=== PATIENT | male | born 1975 | race Caucasian/White ===

== ENCOUNTER 2017-11-24 12:42 | Outpatient (CLI) ==
[2016-01-16 22:32] VITALS: BMI 26.4
--- NOTE | 2017-11-28 13:47 | HOLTER ---
PATIENT INFORMATION AND COMMENTS Attending Physician: DR. PAULA CLARK Indications: PALPITATIONS, HISTORY OF ABLATION, HISTORY OF SVT __ Patient Medications: VYVANSE, CARDIZEM, PROSCAR __ Pre-procedure Summary: Protocol: Standard Heart Rate Started: 11/24/17 1311 Minimum: 65 BPM Weight: 198 LBS Ended: 11/25/17 1247 Maximum: 119 BPM Height: 72" Duration: 24 HOURS 36 MIN Average: 76 BPM _ INTERPRETATIONS/OBSERVATIONS: 1. BASIC RHYTHM: SINUS, RATE 65 BPM TO 110 BPM, AVERAGE 75 BPM 2. INFREQUENT PAC'S AND PVC'S 3. PVC'S, FEW COUPLETS, NO SALVOS 4. THREE BEAT PAT'S--5 TO 6 / [address]-T WAVE CHANGES FROM BASELINE 6. NO CORRELATION WITH ACTIVITY LOG MTDD
== END 2017-11-24 12:43 | disposition home or self-care (01) ==
LOC: CAR 12:42
PROVIDERS: ATTEND Internal Medicine
DX: R00.2 Palpitations (principal)
CPT/HCPCS: 93227

== ENCOUNTER 2018-05-22 08:52 | Outpatient (CLI) ==
[2016-01-16 22:32] VITALS: BMI 26.4
--- NOTE | 2018-05-22 10:05 | DI ---
Exam: Two views of the chest with four images. Comparison: 01/16/2016. Reason for exam: Cough for a breath. FINDINGS: No pneumothorax, pleural effusion, or focal consolidation. The cardiac silhouette is not enlarged. The imaged osseous structures appear grossly unremarkable without acute fracture. Impression: No acute cardiopulmonary process.
== END 2018-05-22 08:53 | disposition home or self-care (01) ==
LOC: CAR 08:52
PROVIDERS: ATTEND Internal Medicine
DX: R06.02 Shortness of breath (principal); R05 Cough

== ENCOUNTER 2018-06-25 21:14 | Emergency (ER) ==
[2018-06-25 21:23] VITALS: BP 146/81; TEMP 99.7; BMI 27.1
--- NOTE | 2018-06-25 23:00 | CT ---
EXAM: CT chest without intravenous contrast 06/25/2018. Sagittal and coronal reformatted images obt ained HISTORY: Fever COMPARISON: 05/22/2018 FINDINGS: The heart size appears within normal limits. There is no pericardial effusion. Minimal at electasis. There is no pulmonary consolidation, effusion or pneumothorax. Limited views of the upper abdomen show no acute abnormality. Mild chronic degenerative endplate changes. There is no acute osseous abnormality. IMPRESSION: Minimal atelectasis. No acute superimposed cardiopulmonary process.
--- NOTE | 2018-06-25 23:05 | CT ---
EXAM: CT abdomen pelvis without and with intravenous contrast 06/25/2018. Sagittal and coronal refo rmatted images obtained HISTORY: Fever. Recent umbilical hernia. Question abscess COMPARISON: None. FINDINGS: The liver and gallbladder show no acute abnormality. The adrenal glands and kidneys show no acute abnormality. The spleen and pancreas show no acute process. There is no bowel obstruction. Normal appendix. Unremarkable urinary bladder. No free air or free fluid within the abdomen or pelvis A fluid collection is present within the subcutaneous fat at the level of the umbilicus. This extend s from the level of the skin surface to the level of the abdominal wall musculature. On axial series image 88 this measures 3.1 x 2.9 cm diameter. This could represent postoperative seroma. Infected fluid fluid collection/developing abscess is not excluded. Aspiration could be considered. IMPRESSION: Superficial subcutaneous fluid collection at the level of the umbilicus. Reference imag es and measurements above. This could be sterile or infected. Aspiration be could be considered.
[2018-06-25] MEDS ORDERED: DOXY-100 100 MG in SODIUM CHLORIDE 100 ML IV STA (23:24)
--- NOTE | 2018-06-25 23:27 | ED.PDOC ---
General ED Provider: Dr. KANWAL TAVARES-ER Chief Complaint: Fever Stated Complaint: josh had a fever for 2-3 days--i did get bit by a tick 2 weeks ago-umbilical hernia repair 2 weeks ago--denies anyh abdominal pain, drainage or redness at surgical site Time Seen by Physician: 21:20 Mode of Arrival: Walk-In Information Source: Patient, Family Exam Limitations: No limitations Primary Care Provider: PAULA GODINEZ Nursing and Triage Documentation Reviewed and Agree: Yes Does patient meet sepsis criteria?: No System Inflammatory Response Syndrome: Not Applicable Sepsis Protocol: For patient's 13 years and over: Temp is 96.8 and below OR 101 and greater Pulse >90 BPM Resp >20/minute Acutely Altered Mental Status Are patient's symptoms suggestive of a new infection, such as: -Pneumonia -Skin, Soft Tissue -Endocarditis -UTI -Bone, Joint Infection -Implantable Device -Acute Abdominal Infection -Wound Infection -Meningitis -Blood Stream Catheter Infection -Unknown Miscellaneous Complaint Exam - Febrile Illness/Adult Complaint/Exam Onset/Duration: 2-3 days Symptoms Are: Still present Timing: Intermittent Initial Severity: Mild Current Severity: Moderate Aggravating: Reports: None Alleviating: Reports: None Associated Signs and Symptoms: Reports: Headache, Chills, Arthralgia, Stiff neck , Myalgia. Denies: Fluid intake, Short of air, Cough, Sore throat, Nausea, Vomiting, Diaphoresis, Dysuria, Rash, Altered mental status Related History: Reports: Recent tick bite, Recent tick exposure Pseudomonas Risk Factors: Reports: None Serious Bacterial Infection Risk Factors: Reports: None Current Antibiotic Use: No Specific Findings: Absent: Meningeal signs, Diaphoresis, Joint swelling, Erythema, Cellulitis, Lymphadenopathy, CVA tenderness Differential Diagnoses: Abdominal Abscess, Bacteremia, Ari [place]tn. Spotted Fever , Viremia, Other Review of Systems - Review Of Systems Constitutional: Reports: Chills, Fever Eyes: Reports: No symptoms Ears, Nose, Mouth, Throat: Reports: No symptoms Respiratory: Reports: No symptoms Cardiac: Reports: No symptoms GI: Reports: No symptoms : Reports: No symptoms Musculoskeletal: Reports: No symptoms Skin: Reports: No symptoms Neurological: Reports: No symptoms Endocrine: Reports: No symptoms Hematologic/Lymphatic: Reports: No symptoms All Other Systems: Reviewed and Negative Past Medical History - Past Medical History Previously Healthy: No Endocrine: Reports: None Cardiovascular: Reports: Hypertension, Other (H/O SVT ) Respiratory: Reports: None Hematological: Reports: None Gastrointestinal: Reports: None Genitourinary: Reports: None Neuro/Psych: Reports: None Musculoskeletal: Reports: None Cancer: Reports: None - Surgical History General Surgical History: Reports: None - Family History Family History: Reports: None - Social History Smoking Status: Former smoker Hx Substance Use: No Alcohol Screening: Occasionally Lives: With family - Immunizations Tetanus Shot up to Date: Yes Physical Exam - Physical Exam Appearance: Well-appearing, No pain distress, Well-nourished Eyes: AKASH, EOMI, Conjunctiva clear ENT: Ears normal Neck: Supple Respiratory: Airway patent, Breath sounds clear, Breath sounds equal, Respirations nonlabored Cardiovascular: RRR, Pulses normal, No rub, No murmur GI/: Soft, Nontender, No masses (surgical site looks good--no erythema or induration or drainage), Bowel sounds normal, No Organomegaly Musculoskeletal: Normal strength, ROM intact, No edema, No calf tenderness Skin: Warm, Dry, Normal color Neurological: Sensation intact Psychiatric: Affect appropriate, Mood appropriate Interpretation - Radiology Interpretation Radiology Interpretation By: Radiologist Radiology Results: Positive Exam Interpreted: CT Scan Physician Notification - Case Discussed Physician Notified: dr godinez Time of Notification: 23:27 Critical Care Note - Critical Care Note Total Time (mins): 0 Course - Course Hematology/Chemistry: 06/25/18 21:35 06/25/18 21:35 Orders, Labs, Meds: Lab Review 06/25/18 06/25/18 06/25/18 21:25 21:35 21:35 WBC 5.86 RBC 5.03 Hgb 15.1 Hct 44.1 MCV 87.7 MCH 30.0 MCHC 34.2 RDW Coeff of Feliz 12.5 Plt Count 221 Immature Gran % (Auto) 0.3 Neut % (Auto) 72.6 Lymph % (Auto) 12.8 [place] % (Auto) 12.5 H Eos % (Auto) 0.9 Baso % (Auto) 0.9 Immature Gran # (Auto) 0.0 Neut # (Auto) 4.3 Lymph # (Auto) 0.8 [place] # (Auto) 0.7 Eos # (Auto) 0.1 Baso # (Auto) 0.1 ESR 5 Sodium 135 L Potassium 3.8 Chloride 104 Carbon Dioxide 21 Anion Gap 13.8 BUN 19 H Creatinine 0.93 Estimated GFR (MDRD) 88.00 BUN/Creatinine Ratio 20.43 Glucose 112 H Lactic Acid Calcium 9.3 Total Bilirubin 0.4 AST 64 H ALT 72 Alkaline Phosphatase 68 Total Protein 7.3 Albumin 3.7 Globulin 3.6 Albumin/Globulin Ratio 1.03 Procalcitonin Urine Color Yellow Urine Clarity Clear Urine pH 5.5 Ur Specific [place] 1.020 Urine Protein Negative Urine Glucose (UA) Negative Urine Ketones Trace Urine Blood Negative Urine Nitrite Negative Urine Bilirubin Negative Urine Urobilinogen 0.2 Ur Leukocyte Esterase Negative 06/25/18 06/25/18 21:35 21:35 WBC RBC Hgb Hct MCV MCH MCHC RDW Coeff of Feliz Plt Count Immature Gran % (Auto) Neut % (Auto) Lymph % (Auto) [place] % (Auto) Eos % (Auto) Baso % (Auto) Immature Gran # (Auto) Neut # (Auto) Lymph # (Auto) [place] # (Auto) Eos # (Auto) Baso # (Auto) ESR Sodium Potassium Chloride Carbon Dioxide Anion Gap BUN Creatinine Estimated GFR (MDRD) BUN/Creatinine Ratio Glucose Lactic Acid 6.1 Calcium Total Bilirubin AST ALT Alkaline Phosphatase Total Protein Albumin Globulin Albumin/Globulin Ratio Procalcitonin 0.26 Urine Color Urine Clarity Urine pH Ur Specific [place] Urine Protein Urine Glucose (UA) Urine Ketones Urine Blood Urine Nitrite Urine Bilirubin Urine Urobilinogen Ur Leukocyte Esterase Orders Category Date Time Status NPO REMINDER: IMAGING ONCE CARE 06/25/18 21:34 Active IV [ED IV/MEDIPORT/POWERPORT] .ONCE EMERGENCY 06/25/18 21:33 Active BLOOD CULTURE (ED ONLY) Stat LAB 06/25/18 21:35 Received CBC W/ AUTO DIFF Stat LAB 06/25/18 21:35 Completed COMPREHENSIVE METABOLIC PANEL Stat LAB 06/25/18 21:35 Completed EHRLICHIA DNA, PCR Stat LAB 06/25/18 21:35 Received ESR Stat LAB 06/25/18 21:35 Completed LACTIC ACID Stat LAB 06/25/18 21:35 Completed MOLECULAR GROUP A STREP Stat LAB 06/25/18 21:25 Completed PROCALCITONIN Stat LAB 06/25/18 21:35 Completed ARI MTN SPOTTED FEVER,IgG Stat LAB 06/25/18 21:35 Received ARI MTN SPOTTED FEVER,IgM Stat LAB 06/25/18 21:35 Received URINALYSIS C & S IF INDICATED Stat LAB 06/25/18 21:25 Completed 0.9 % Sodium Chloride [Saline Flush] MEDS 06/25/18 21:33 Ordered 1 syr IVF PRN PRN Doxycycline Hyclate Inj [Doxy-100] 100 mg MEDS 06/25/18 23:24 Active 0.9 % Sodium Chloride [Sodium Chloride] [address] ABDOMEN/PELVIS W/WO CONTRAS Stat RADS 06/25/18 21:[address] CHEST W/O CONTRAST Stat RADS 06/25/18 21:33 Completed Medications Generic Name Dose Route Start Last Admin Trade Name Freq PRN Reason Stop Dose Admin Doxycycline Hyclate 100 mg/ 100 mls @ 50 mls/hr 06/25/18 23:24 Sodium Chloride IV 06/26/18 01:23 ONCE STA Sodium Chloride 1 syr 06/25/18 21:33 Saline Flush IVF PRN PRN To flush IV Vital Signs: Temp Pulse Resp BP Pulse Ox 06/25/18 21:18 99.7 F H 90 18 146/81 H 95 Departure - Departure Time of Disposition: 23:28 Disposition: HOME SELF-CARE Discharge Problem: Fever Instructions: Tick Bite (ED), Fever in Adults (ED) Condition: Good Pt referred to PMD for follow-up: Yes IPMP verified?: No Additional Instructions: doxycycline 100mg bid x 7 days--continue temp control and stay hydrated--f/u olman godinez in 1-2 days to follow up on tick bite labs Allergies/Adverse Reactions: Allergies No Known Allergies Allergy (Verified 06/25/18 21:26) Home Medications: Ambulatory Orders Lisdexamfetamine Dimesylate [Vyvanse] 50 mg PO DAILY 06/20/15 Carisoprodol [Soma] 350 mg PO DAILY PRN 03/22/18 Diltiazem HCl [Cardizem] 60 mg PO BID 03/22/18 Finasteride [Proscar] 5 mg PO DAILY 03/22/18 Tumeric 1,000 mg PO BID 03/22/18 Disposition Discussed With: Patient, Family
== END 2018-06-26 01:36 | disposition home or self-care (01) ==
LOC: ED 21:14
DX: R50.9 Fever, unspecified (principal); R51 Headache; M79.1 Myalgia; T14.8XXA Other injury of unspecified body region, initial encounter; W57.XXXA Bitten or stung by nonvenomous insect and other nonvenomous arthropods, initial encounter; Z98.890 Other specified postprocedural states; M43.6 Torticollis; M25.50 Pain in unspecified joint; I10 Essential (primary) hypertension; Z79.899 Other long term (current) drug therapy
CPT/HCPCS: 36415; 80053; 81001; 83605; 84145; 85025; 85651; 86757; 87040; 87651; 87798; 96365; 96366; 99283

== ENCOUNTER 2018-09-23 12:59 | Emergency (ER) | payer OTHER ==
[2018-09-23 12:59] VITALS: BMI 27.1
[2018-09-23] MEDS ORDERED: ADENOCARD IVP ONE (13:05)
[2018-09-23 13:17] VITALS: TEMP 98.1
[2018-09-23] MEDS ORDERED: ADENOCARD IVP STA (13:18)
[2018-09-23] MEDS ORDERED: ATIVAN IVP STA (13:19)
[2018-09-23] MEDS ORDERED: SODIUM CHLORIDE 1,000 ML IV STA (13:20)
--- NOTE | 2018-09-23 13:32 | ED.PDOC ---
General ED Provider: Dr. TOMÁS UMANA Chief Complaint: Palpitations Stated Complaint: Patient is a 42 year old male who has a history of SVT with prior ablation in 2015 who comes to the ER with severe palpiations and feeling of impending doom. Heart rate was >150. Denies any chest pain. Time Seen by Physician: 13:20 Mode of Arrival: Walk-In Information Source: Patient Primary Care Provider: PAULA CLARK Nursing and Triage Documentation Reviewed and Agree: Yes Does patient meet sepsis criteria?: No System Inflammatory Response Syndrome: Not Applicable Sepsis Protocol: For patient's 13 years and over: Temp is 96.8 and below OR 101 and greater Pulse >90 BPM Resp >20/minute Acutely Altered Mental Status Are patient's symptoms suggestive of a new infection, such as: -Pneumonia -Skin, Soft Tissue -Endocarditis -UTI -Bone, Joint Infection -Implantable Device -Acute Abdominal Infection -Wound Infection -Meningitis -Blood Stream Catheter Infection -Unknown Cardiovascular Complaint Exam - Palpitations Complaint/Exam Onset/Duration: 40 mins ago Symptoms Are: Still present Timing: Constant Initial Severity: Severe Current Severity: Severe Character: Reports: Fast Aggravating: Reports: Caffeine Alleviating: Reports: None Associated Signs and Symptoms: Reports: Shortness of breath, Diaphoresis. Denies: Lightheadedness, Dizziness, Syncope, Chest pain, Nausea, Vomiting Related Surgical History: Reports: None (except ablation ) Pulmonary Embolism Risk Factors: Reports: None Atrial Fibrillation Risk Factors: Reports: None Differential Diagnoses: Paroxysmal SVT Quality Indicators for AMI: EKG in 10min. Quality Indicators for Cardiac Chest Pain: EKG in 10min. Quality Indicator For Non-Traumatic Chest Pain/Syncope: EKG Performed Review of Systems - Review Of Systems Constitutional: Reports: No symptoms Eyes: Reports: No symptoms Ears, Nose, Mouth, Throat: Reports: No symptoms Respiratory: Reports: Short of air Cardiac: Reports: Palpitations GI: Reports: No symptoms : Reports: No symptoms Musculoskeletal: Reports: No symptoms Skin: Reports: No symptoms Neurological: Reports: Anxiety Endocrine: Reports: No symptoms Hematologic/Lymphatic: Reports: No symptoms All Other Systems: Reviewed and Negative Past Medical History - Past Medical History Previously Healthy: No Endocrine: Reports: None Cardiovascular: Reports: Hypertension, Other (H/O SVT ) Respiratory: Reports: None Hematological: Reports: None Gastrointestinal: Reports: None Genitourinary: Reports: None Neuro/Psych: Reports: None Musculoskeletal: Reports: None Cancer: Reports: None - Surgical History General Surgical History: Reports: None - Family History Family History: Reports: None - Social History Smoking Status: Former smoker Hx Substance Use: No Alcohol Screening: Occasionally Physical Exam - Physical Exam Appearance: Ill-appearing Ill-appearing: Moderate Pain Distress: None Eyes: AKASH, EOMI, Conjunctiva clear Neck: Supple Respiratory: Airway patent, Breath sounds clear, Breath sounds equal, Respirations nonlabored Cardiovascular: Tachycardia GI/: Soft, Nontender, No masses, Bowel sounds normal, No Organomegaly Musculoskeletal: Normal strength, ROM intact, No edema, No calf tenderness Skin: Warm, Dry, Normal color Neurological: Sensation intact, Motor intact, Reflexes intact, Cranial nerves intact, Alert, Oriented Psychiatric: Anxious Re-Evaluation - Re-Evaluation Time of Re-Evaluation: 13:40 Status: Improved Vital Signs Stable: Yes (103 HR ) Critical Care Note - Critical Care Note Total Time (mins): 40 Course - Course Hematology/Chemistry: 09/23/18 13:25 09/23/18 13:25 Orders, Labs, Meds: Lab Review 09/23/18 09/23/18 13:25 13:25 WBC 8.21 RBC 4.69 L Hgb 14.4 Hct 41.4 L MCV 88.3 MCH 30.7 MCHC 34.8 RDW Coeff of Feliz 12.5 Plt Count 288 Immature Gran % (Auto) 0.4 Neut % (Auto) 65.7 Lymph % (Auto) 25.7 [place] % (Auto) 6.6 Eos % (Auto) 1.1 Baso % (Auto) 0.5 Immature Gran # (Auto) 0.0 Neut # (Auto) 5.4 Lymph # (Auto) 2.1 [place] # (Auto) 0.5 Eos # (Auto) 0.1 Baso # (Auto) 0.0 Sodium 136.5 L Potassium 3.59 Chloride 103.3 Carbon Dioxide 24.5 Anion Gap 12.29 BUN 20.3 H Creatinine 1.09 Estimated GFR (MDRD) 73.00 BUN/Creatinine Ratio 18.62 Glucose 126.4 H Calcium 9.10 Magnesium 1.89 Total Bilirubin 0.62 AST 34.4 ALT 17.1 Alkaline Phosphatase 68.9 Total Creatine Kinase 223.0 H CK-MB (CK-2) 4.460 H CK-MB (CK-2) % 2.0000 Troponin I < 0.012 Total Protein 7.32 Albumin 4.56 Globulin 2.76 Albumin/Globulin Ratio 1.65 Orders Category Date Time Status EKG-(ED ONLY) Stat CARDIO 09/23/18 13:20 Completed EKG-(ED ONLY) Stat CARDIO 09/23/18 13:34 Completed ED STITCH RUBBER APPLIED .ONCE EMERGENCY 09/23/18 13:20 Active ED IV/MEDIPORT/POWERPORT .ONCE EMERGENCY 09/23/18 13:20 Active CBC W/ AUTO DIFF Stat LAB 09/23/18 13:25 Completed COMPREHENSIVE METABOLIC PANEL Stat LAB 09/23/18 13:25 Completed CREATINE KINASE Stat LAB 09/23/18 13:25 Completed FREE T4 (FREE THYROXINE) Stat LAB 09/23/18 13:25 Received MAGNESIUM Stat LAB 09/23/18 13:25 Completed THYROID STIMULATING HORMONE Stat LAB 09/23/18 13:25 Received TROPONIN I Stat LAB 09/23/18 13:25 Completed URINE DRUG SCREEN (RAPID FOR ED) [DRUG SCREEN, URINE, LAB 09/23/18 13:56 Received RAPID] Stat 0.9 % Sodium Chloride [Saline Flush] MEDS 09/23/18 13:20 Ordered 1 syr IVF PRN PRN Adenosine [Adenocard] MEDS 09/23/18 13:05 Discontinued 24 mg IVP .STK-MED ONE Adenosine [Adenocard] MEDS 09/23/18 13:18 Discontinued 6 mg IVP ONCE STA Lorazepam Inj [Ativan] MEDS 09/23/18 13:19 Discontinued 1 mg IVP ONCE STA Sodium Chloride 0.9% [Sodium Chloride] 1,000 ml MEDS 09/23/18 13:20 Active IV 125 mls/hr Medications Generic Name Dose Route Start Last Admin Trade Name Freq PRN Reason Stop Dose Admin Sodium Chloride 1,000 mls @ 125 mls/hr 09/23/18 13:20 09/23/18 13:27 Sodium Chloride IV 09/23/18 21:19 125 mls/hr .Q8H STA Administration Sodium Chloride 1 syr 09/23/18 13:20 09/23/18 13:27 Saline Flush IVF 1 syr PRN PRN Administration To flush IV Discontinued Medications Generic Name Dose Route Start Last Admin Trade Name Freq PRN Reason Stop Dose Admin Adenosine 6 mg 09/23/18 13:18 09/23/18 13:06 Adenocard IVP 09/23/18 13:19 6 mg ONCE STA Administration Lorazepam 1 mg 09/23/18 13:19 09/23/18 13:27 Ativan IVP 09/23/18 13:20 1 mg ONCE STA Administration Vital Signs: Temp Pulse Resp BP Pulse Ox 09/23/18 14:06 105 H 137/99 H 97 09/23/18 13:55 111 H 135/91 H 97 09/23/18 13:39 102 H 144/98 H 95 09/23/18 13:28 107 H 18 139/109 H 95 09/23/18 13:03 98.1 F 207 H 24 123/89 98 AMI Core - Clinical Trial Participant Clinical Trial Participant: No - Palliative Care Palliative Care: none NESTOR Risk Score Age >/= 65: No >/= 3 CAD Risk Factors: No Known CAD (Stenosis >/= 50%): No ASA Use in Past 7 Days: No Severe Angina (>/= 2 episodes in 24 hours): No EKG ST Changes >/= 0.5mm: No Postive Cardiac Marker: No NESTOR Total Score: 0 NESTOR Risk Score: Risk Score Odds of by 30D 0 0.1 (0.1-0.2) 1 0.3 (0.2-0.3) 2 0.4 (0.3-0.5) 3 0.7 (0.6-0.9) 4 1.2 (1.0-1.5) 5 2.2 (1.9-2.6) 6 3.0 (2.5-3.6) 7 4.8 (3.8-6.1) Departure - Departure Time of Disposition: 14:30 Disposition: HOME SELF-CARE Discharge Problem: Palpitations Instructions: Supraventricular Tachycardia (ED) Condition: Stable Pt referred to PMD for follow-up: Yes IPMP verified?: No Additional Instructions: Take home Medications as prescribed especially cardiizem Follow up with PCP in 3 days Allergies/Adverse Reactions: Allergies No Known Allergies Allergy (Verified 09/23/18 13:13) Home Medications: Ambulatory Orders Lisdexamfetamine Dimesylate [Vyvanse] 50 mg PO DAILY 06/20/15 Carisoprodol [Soma] 350 mg PO DAILY PRN 03/22/18 Diltiazem HCl [Cardizem] 60 mg PO BID 03/22/18 Finasteride [Proscar] 5 mg PO DAILY 03/22/18 Turmeric Root Extract [Turmeric] 1,000 mg PO BID 09/23/18
[2018-09-23 14:07] VITALS: BP 137/99
== END 2018-09-23 14:38 | disposition home or self-care (01) ==
LOC: ED 12:59
DX: R00.2 Palpitations (principal); R06.02 Shortness of breath; I10 Essential (primary) hypertension; Z79.899 Other long term (current) drug therapy
CPT/HCPCS: 36415; 80053; 80306; 82550; 82553; 83735; 84439; 84443; 84484; 85025; 93005; 93010; 96361; 96374; 96375; 99283